=== PATIENT | male | born 1995 | race Two or more races ===

== ENCOUNTER 2022-01-21 19:59 | Emergency (ER) | payer OTHER ==
[~2022-01-21] VITALS: Ht 170.2 cm; Wt 102.5 kg
== END 2022-01-22 12:02 | disposition home or self-care (01) ==
LOC: ER 19:59
DX: J09.X2 Influenza due to identified novel influenza A virus with other respiratory manifestations (principal); R50.9 Fever, unspecified; Z20.822 Contact with and (suspected) exposure to COVID-19